=== PATIENT | male | born 2000 | race Two or more races ===

== ENCOUNTER 2023-03-21 21:40 | Emergency (ER) | payer MEDICAID ==
[~2023-03-21] VITALS: Ht 170.2 cm; Wt 59.9 kg
[2023-03-22] MEDS ORDERED: GABA100C9 PO (00:26)
[2023-03-22 00:35] VITALS: BP 119/75
== END 2023-03-22 00:38 | disposition home or self-care (01) ==
LOC: ER 21:40
DX: G56.03 Carpal tunnel syndrome, bilateral upper limbs (principal); F15.10 Other stimulant abuse, uncomplicated